=== PATIENT | female | born 1995 | race Caucasian/White ===

== ENCOUNTER 2016-07-08 17:24 | Inpatient (IN) | payer OTHER ==
[2016-07-08] MEDS ORDERED: BRETHINE SUB-Q PRN (19:21)
[2016-07-08] MEDS ORDERED: STADOL IV PRN (19:21)
[2016-07-08] MEDS ORDERED: SUBLIMAZE IV PRN (19:21)
[2016-07-08] MEDS ORDERED: BRETHINE IVP PRN (19:21)
[2016-07-08] MEDS ORDERED: ePHEDrine SULFATE IV PRN (19:21)
[2016-07-08] MEDS ORDERED: NARCAN 0.4 MG/1 ML IV PRN (19:21)
[2016-07-08] MEDS ORDERED: MINERAL OIL PO PRN (19:21)
[2016-07-08] MEDS ORDERED: ZOFRAN IV PRN (19:21)
[2016-07-08] MEDS ORDERED: XYLOCAINE 2% INFILTRATI ONE ×3 (19:21→22:48)
[2016-07-08] MEDS ORDERED: PITOCin/NS 20 UNIT/1000ML DRIP 20 UNIT/1,000 ML BAG IV SCH (20:00)
[2016-07-08] MEDS ORDERED: PITOCin/NS 30 UNIT/500ML 30 UNIT/500 ML BAG IV SCH (20:00)
[2016-07-08] MEDS ORDERED: POLYCILLIN/NS 2 GM/100 ML 2 GM/100 ML BAG IV ONE (20:00)
[2016-07-08] MEDS ORDERED: LACTATED RINGERS 1,000 ML IV SCH (20:00)
[2016-07-08 20:19] LABS: Hematocrit 42.4 % (30.3-42.9); Hemoglobin 14.5 gm/dl (10.1-14.3); Mean Corpuscular HGB Conc 34 % (30-34); Mean Corpuscular Hemoglobin 32 pg (28-32); Mean Corpuscular Volume 93 fl (79-97); Platelet Count 128 K/mm3 (140-440); Red Blood Count 4.58 M/mm3 (3.65-5.03); Red Cell Distribution Width 13.4 % (13.2-15.2); White Blood Count 11.1 K/mm3 (4.5-11.0)
[2016-07-08] MEDS ORDERED: POLYCILLIN/NS 1 GM/50 ML 1 GM/50 ML BAG IV SCH (23:23)
--- NOTE | 2016-07-08 23:27 | History and Physical Report ---
History of Present Illness Date of examination: 07/08/16 Date of admission: 07/08/16 17:24 Chief complaint: sent for induction History of present illness: Pt is a 21 year old female primigravida RUMA 07/04/16 at 40w4d presents for induction of labor secondary to oligohydramnios. She reports good movement and denies vaginal bleeding and leakage of fluid. She has had care at [facility] since 8 wks that has been uncomplicated other than GBS positive status. Past History Past Medical History: no pertinent history Past Surgical History: no surgical history Family/Genetic History: none Social history: no significant social history - Obstetrical History Expected Date of Delivery: 07/04/16 Actual Gestation: 40 Week(s) 4 Day(s) : 1 Medications and Allergies Allergies Allergy/AdvReac Type Severity Reaction Status Date / Time No Known Allergies Allergy Unverified 07/08/16 18:38 Home Medications Medication Instructions Recorded Confirmed Last Taken Type No Known Home Medications [No 07/08/16 07/08/16 Unknown History Reported Home Medications] Active Meds: Active Medications Butorphanol Tartrate (Stadol) 2 mg IV Q2H PRN PRN Reason: Pain , Severe (7-10) Last Admin: 07/08/16 23:14 Dose: 2 mg Fentanyl (Sublimaze) 100 mcg IV Q2H PRN PRN Reason: Labor Pain Last Admin: 07/08/16 21:56 Dose: 100 mcg Ampicillin Sodium (Polycillin/Ns 1 Gm/50 Ml) 1 gm in 50 mls @ 100 mls/hr IV Q4H CONCHIS PRN Reason: Protocol Lactated Ringer's (Lactated Ringers) 1,000 mls @ 125 mls/hr IV DIRECT CONCHIS Last Admin: 07/08/16 20:16 Dose: 125 mls/hr Oxytocin/Sodium Chloride (Pitocin/Ns 20 Unit/1000ml Drip) 20 unit in 1,000 mls @ 125 mls/hr IV DIRECT CONCHIS Last Admin: 07/08/16 23:14 Dose: 125 mls/hr Oxytocin/Sodium Chloride (Pitocin/Ns 30 Unit/500ml) 30 unit in 500 mls @ 0 mls/ hr IV TITR CONCHIS PRN Reason: Protocol Last Admin: 07/08/16 20:22 Dose: 2 mls/hr Mineral Oil (Mineral Oil) 30 ml PO QHS PRN PRN Reason: Constipation Naloxone HCl (Narcan 0.4 Mg/1 Ml) 0.1 mg IV Q2MIN PRN PRN Reason: Res Rate </= 8 or 02 SAT < 92% Ondansetron HCl (Zofran) 4 mg IV Q8H PRN PRN Reason: Nausea And Vomiting Review of Systems All systems: negative - Vital Signs Vital signs: Vital Signs Pulse Ox 99 07/08/16 17:52 Temp Pulse Resp BP Pulse Ox 98.5 F 64 18 116/76 96 07/08/16 19:52 07/08/16 19:54 07/08/16 19:52 07/08/16 19:54 07/08/16 18:41 - Physical Exam Breasts: Positive: deferred Abdomen: Positive: soft (gravid ) Genitourinary (Female): Positive: normal external genitalia Uterus: Positive: enlarged (gravid ) Extremities: Positive: normal - Obstetrical FHR: category 2 Uterine Contraction Monitor Mode: External Cervical Dilatation: 10 Cervical Effacement Percentage: 100 station: +2 Uterine Contraction Pattern: Regular Uterine Tone Measurement Phase: Resting Uterine Contraction Intensity: Strong/Firm Results Result Diagrams: 07/08/16 20:00 Abnormal lab results 07/08/16 Range/Units 20:00 WBC 11.1 H (4.5-11.0) K/mm3 Hgb 14.5 H (10.1-14.3) gm/dl Plt Count 128 L (140-440) K/mm3 All other labs normal. Assessment and Plan A: IUP at 40w4d Oligohydramnios Second stage labor GBS positive Thrombocytopenia Suspected Hemoconcentration P: Admit to labor and delivery. Routine intrapartum care. Anticipate vaginal delivery.
--- NOTE | 2016-07-08 23:34 | Procedure Note ---
OB Delivery Note - Delivery Date of Delivery: 07/08/16 Surgeon: BLAISE LORD Estimated blood loss: other (400 mL) - Vaginal Delivery presentation: vertex Delivery position: OA Intrapartum events: decreased FHT variability, mult.variable deceleratio Delivery induction: AROM Delivery monitor: external FHT, external uterine Route of delivery: Delivery placenta: spontaneous Delivery cord: 3 umbilical vessels Episiotomy: none Delivery laceration: 2nd degree, other (left periurethral ) Delivery repair: vicryl Anesthesia: local, intravenous Delivery comments: Pt rapidly progressed from 4 cm to complete/complete/+2 and pushed to deliver a viable female via over intact perineum under IV anesthesia. Head delivered in RAJWINDER position, quickly followed by shoulders and body. placed on maternal abdomen and bulb suctioned. NICU called because slow to cry. Cord blood collected. Placenta delivered spontaneously (3VC, intact). Vagina and perineum explored. Left periurethral noted to be hemostatic. Deep second degree laceration repaired with 2-0 Vicryl in a standard fashion. EBL 400 mL. Pt will need a 2 wk incision check appointment . - A at 1 minute: 8 at 5 minutes: 9 Infant Gender: Female (3428g (7lb 9 oz))
[2016-07-09] MEDS ORDERED: TYLENOL PO PRN (02:26)
[2016-07-09] MEDS ORDERED: PITOCin/NS 20 UNIT/1000ML DRIP 20 UNIT/1,000 ML BAG IV SCH (02:26)
[2016-07-09] MEDS ORDERED: LANSINOH TP PRN (02:26)
[2016-07-09] MEDS ORDERED: ZOFRAN IV PRN (02:26)
[2016-07-09] MEDS ORDERED: SODIUM CHLORIDE FLUSH SYRINGE 10 ML IV NR (02:26)
[2016-07-09] MEDS ORDERED: PHENERGAN PO PRN (02:26)
[2016-07-09] MEDS ORDERED: DULCOLAX PR PRN (02:26)
[2016-07-09] MEDS ORDERED: MILK OF MAGNESIA PO PRN (02:26)
[2016-07-09] MEDS ORDERED: BENADRYL PO PRN (02:26)
[2016-07-09] MEDS ORDERED: PHENERGAN PR PRN (02:26)
[2016-07-09] MEDS ORDERED: DERMOPLAST TP PRN (02:26)
[2016-07-09] MEDS ORDERED: PERCOCET 5/325 PO PRN (02:26)
--- NOTE | 2016-07-09 09:42 | Progress Note ---
Assessment and Plan O: VSS AF PP H/H: pending A: Stable 8hr PP Second Degree Laceration P: Continue routine orders Subjective - Subjective Date of service: 07/09/16 Patient reports: appetite normal, voiding normally, pain well controlled, flatus , ambulating normally [place]: doing well Objective - Vital Signs Latest vital signs: Vital Signs Temp Pulse Pulse Resp BP BP Pulse Ox 07/09/16 06:05 98.5 F 58 L 18 98/54 07/09/16 02:30 98.6 F 66 18 99/57 07/09/16 00:00 98.6 F 92 H 18 107/59 99 07/08/16 23:31 92 H 107/59 07/08/16 23:30 98.6 F 97 H 18 107/59 98 07/08/16 23:24 97 H 130/57 07/08/16 23:00 98.5 F 97 H 18 130/57 99 07/08/16 19:54 64 116/76 07/08/16 19:52 98.5 F 18 116/76 07/08/16 18:41 72 96 07/08/16 18:36 73 95 07/08/16 18:34 74 94 07/08/16 18:31 72 95 07/08/16 18:26 79 97 07/08/16 18:21 75 95 07/08/16 18:18 71 94 07/08/16 18:16 71 96 07/08/16 18:14 98.8 F 85 16 110/64 100 07/08/16 18:08 77 97 07/08/16 18:07 71 83 L 07/08/16 18:02 71 96 07/08/16 17:57 70 96 07/08/16 17:53 69 110/64 07/08/16 17:52 99 Intake and Output 07/08/16 07/09/16 07/09/16 22:59 06:59 14:59 Intake Total 240 Balance 240 Intake: Intake, Free Water 240 Other: # Voids Void 1 Weight 80.286 kg - Exam Breasts: Present: deferred Abdomen: Present: normal appearance, soft. Absent: distention, tenderness Vulva: both: normal Uterus: Present: normal, firm, fundal height at umbilicus. Absent: bogginess, tenderness Extremities: Present: normal - Labs Labs: Abnormal lab results 07/08/16 Range/Units 20:00 WBC 11.1 H (4.5-11.0) K/mm3 Hgb 14.5 H (10.1-14.3) gm/dl Plt Count 128 L (140-440) K/mm3
--- NOTE | 2016-07-09 09:43 | Discharge Summary ---
Providers - Providers Date of Admission: 07/08/16 17:24 Date of discharge: 07/10/16 Attending physician: BLAISE LORD 07/09/16 02:26 Consult to Assistant Professor Of Life [employer] [CONS] Routine Reason For Exam: assistance with , SNS Primary care physician: BLAISE LORD Hospitalization Reason for admission: induction of labor (oligo), IUP at term, other Delivery: Laceration: 2nd degree Other procedures: none complications: none Discharge diagnosis: IUP at term delivered baby: female Condition at discharge: Good Disposition: DISCHARGED TO HOME OR SELFCARE Plan - Discharge Medications Prescriptions: Ibuprofen [Motrin] 800 mg PO Q8HR PRN #30 tablet PRN Reason: Pain oxyCODONE /ACETAMINOPHEN [Percocet 5/325] 1 tab PO Q6HR PRN #30 tablet PRN Reason: Pain - Provider Discharge Summary Activity: routine, no sex for 6 weeks, no heavy lifting 4 weeks, no strenuous exercise Diet: routine Instructions: routine Additional instructions: [] Smoking cessation referral if applicable(refer to patient education folder for contact #) [] Refer to [facility]'s [facility] Booklet Call your doctor immediately for: * Fever > 100.5 * Heavy vaginal bleeding ( >1 pad per hour) * Severe persistent headache * Shortness of breath * Reddened, hot, painful area to leg or breast * Drainage or odor from incision. * Keep incision clean and dry at all times and follow doctor's instructions regarding bathing/showering - Follow up plan Follow up: BLAISE LORD MD [Primary Care Provider] - 14 Days (RTO 2 weeks laceration check)
[2016-07-09] MEDS: PRENATAL VITAMIN PO SCH (11:10)
[2016-07-09] MEDS: FEOSOL PO SCH ×2 (11:10→23:30)
[2016-07-09] MEDS: COLACE PO SCH ×2 (11:10→23:30)
[2016-07-09] MEDS: TUCKS PAD TP PRN (11:10)
[2016-07-09 12:15] LABS: Hemoglobin 12.3 gm/dl (10.1-14.3); Mean Corpuscular HGB Conc 34 % (30-34); Mean Corpuscular Hemoglobin 32 pg (28-32); Mean Corpuscular Volume 95 fl (79-97); Platelet Count 114 K/mm3 (140-440); Red Cell Distribution Width 13.4 % (13.2-15.2); White Blood Count 10.2 K/mm3 (4.5-11.0)
[2016-07-09] MEDS: MOTRIN PO SCH ×2 (14:57→18:13)
[2016-07-10] MEDS: MOTRIN PO SCH ×3 (00:14→12:45)
[2016-07-10] MEDS ORDERED: BOOSTRIX IM ONE (06:00)
[2016-07-10] MEDS ORDERED: M-M-R II VACCINE SUB-Q ONE (06:00)
[2016-07-10] MEDS: PRENATAL VITAMIN PO SCH (12:45)
[2016-07-10] MEDS: COLACE PO SCH (12:45)
[2016-07-10] MEDS: FEOSOL PO SCH ×2 (12:45→22:20)
[2016-07-10 18:54] VITALS: BP 110/60
[2016-07-10] MEDS: TUCKS PAD TP PRN (22:19)
== END 2016-07-10 23:00 | disposition home or self-care (01) | DRG 775 ==
LOC: LD 17:24 → OB 07-09 01:36
PROVIDERS: ADMIT Obstetrics & Gynecology; ATTEND Obstetrics & Gynecology
PROC: 10E0XZZ Delivery of Products of Conception, External Approach (ICD-10-PCS; principal; 2016-07-08)
PROC: 0KQM0ZZ Repair Perineum Muscle, Open Approach (ICD-10-PCS; 2016-07-08)
PROC: 10907ZC Drainage of Amniotic Fluid, Therapeutic from Products of Conception, Via Natural or Artificial Opening (ICD-10-PCS; 2016-07-08)
DX: O41.03X0 Oligohydramnios, third trimester, not applicable or unspecified (principal); O99.12 Other diseases of the blood and blood-forming organs and certain disorders involving the immune mechanism complicating childbirth; O70.1 Second degree perineal laceration during delivery; Z3A.40 40 weeks gestation of pregnancy; Z37.0 Single live birth; Z23 Encounter for immunization; O99.820 Streptococcus B carrier state complicating pregnancy; O76 Abnormality in fetal heart rate and rhythm complicating labor and delivery; D69.6 Thrombocytopenia, unspecified
CPT/HCPCS: 36415; 85027; 86850; 86900; 86901; 88307; 90471; 90715; 99211; G0463; J0290; J0595; J2590; J3010; J7120

== ENCOUNTER 2021-10-15 17:10 | Emergency (ER) | payer SELFPAY ==
[2021-10-15] MEDS ORDERED: SODIUM CHLORIDE 0.9% 1000 ML 1,000 ML IV ONE (22:11)
[2021-10-15 22:14] VITALS: BP 114/67
[2021-10-15 22:47] LABS: Basophils % (Auto) 0.3 % (0.0-1.8); Eosinophils # (Auto) 0.3 K/mm3 (0.0-0.4); Eosinophils % (Auto) 4.3 % (0.0-4.3); Hemoglobin 13.7 gm/dl (10.1-14.3); Lymphocytes # (Auto) 2.3 K/mm3 (1.2-5.4); Lymphocytes % (Auto) 37.3 % (13.4-35.0); Mean Corpuscular HGB Conc 34 % (30-34); Mean Corpuscular Volume 92 fl (79-97); Monocytes # (Auto) 0.4 K/mm3 (0.0-0.8); Monocytes % (Auto) 6.7 % (0.0-7.3); Platelet Count 172 K/mm3 (140-440); Red Blood Count 4.33 M/mm3 (3.65-5.03); Red Cell Distribution Width 13.5 % (13.2-15.2)
[2021-10-15 23:00] LABS: Blood Urea Nitrogen 7 mg/dL (7-17); Calcium 8.6 mg/dL (8.4-10.2); Hemolysis Index 7
[2021-10-15 23:03] LABS: INR 0.93 (0.87-1.13)
[2021-10-15 23:15] LABS: BUN/Creatinine Ratio 14
--- NOTE | 2021-10-15 23:22 | Emergency Department Report ---
ED HPI - General Chief complaint: Vaginal Bleeding Stated complaint: DOCTOR'S REFERRAL Time Seen by Provider: 10/15/21 21:59 Source: patient Mode of arrival: Ambulatory Limitations: No Limitations - History of Present Illness Initial comments: with right ectopic , sent from dr huertas office for methotrexate injection, first mock, no pain some vaginal bleeding vss Complaint: vaginal bleeding -: hour(s) Location: flank Radiation: R flank Severity scale (0 -10): 0 Associated symptoms: vaginal bleeding - Related Data : 3 Para: 2 Previous Rx's Medication Instructions Recorded Last Taken Type oxyCODONE /ACETAMINOPHEN [Percocet 1 tab PO Q6HR PRN #30 tablet 07/08/16 Unknown Rx 5/325] Ibuprofen [Motrin] 800 mg PO Q8HR PRN #30 tablet 07/09/16 Unknown Rx HYDROcodone/APAP 5-325 [Cecilia 1 each PO Q6HR PRN #15 tablet 02/26/20 Unknown Rx 5/325] Ibuprofen [Motrin] 800 mg PO Q8HR PRN #30 tablet 02/26/20 Unknown Rx Allergies Allergy/AdvReac Type Severity Reaction Status Date / Time No Known Allergies Allergy Unverified 07/08/16 18:38 ED Review of Systems ROS: Stated complaint: DOCTOR'S REFERRAL Other details as noted in HPI Constitutional: denies: chills, fever Eyes: denies: eye pain, eye discharge, vision change ENT: denies: ear pain, throat pain Respiratory: denies: cough, shortness of breath, wheezing Cardiovascular: denies: chest pain, palpitations Endocrine: no symptoms reported Gastrointestinal: denies: abdominal pain, nausea, diarrhea Genitourinary: denies: urgency, dysuria, discharge Musculoskeletal: denies: back pain, joint swelling, arthralgia Skin: denies: rash, lesions Neurological: denies: headache, weakness, paresthesias Psychiatric: denies: anxiety, depression Hematological/Lymphatic: denies: easy bleeding, easy bruising ED Past Medical Hx - Past Medical History Hx Hypertension: No Hx Congestive Heart Failure: No Hx Diabetes: No Hx Deep Vein Thrombosis: No Hx Renal Disease: No Hx Sickle Cell Disease: No Hx Seizures: No Hx Asthma: No Hx COPD: No Hx HIV: No - Social History Smoking Status: Never Smoker - Medications Home Medications: Home Medications Medication Instructions Recorded Confirmed Last Taken Type oxyCODONE /ACETAMINOPHEN [Percocet 1 tab PO Q6HR PRN #30 tablet 07/08/16 02/26/20 Unknown Rx 5/325] Ibuprofen [Motrin] 800 mg PO Q8HR PRN #30 tablet 07/09/16 02/26/20 Unknown Rx HYDROcodone/APAP 5-325 [Cecilia 1 each PO Q6HR PRN #15 tablet 02/26/20 Unknown Rx 5/325] Ibuprofen [Motrin] 800 mg PO Q8HR PRN #30 tablet 02/26/20 Unknown Rx ED Physical Exam - General Limitations: No Limitations General appearance: alert, in no apparent distress - Head Head exam: Present: atraumatic, normocephalic - Eye Eye exam: Present: normal appearance - ENT ENT exam: Present: mucous membranes moist - Neck Neck exam: Present: normal inspection - Respiratory Respiratory exam: Present: normal lung sounds bilaterally. Absent: respiratory distress - Cardiovascular Cardiovascular Exam: Present: regular rate, normal rhythm. Absent: systolic murmur, diastolic murmur, rubs, gallop - GI/Abdominal GI/Abdominal exam: Present: soft, normal bowel sounds - Extremities Exam Extremities exam: Present: normal inspection - Back Exam Back exam: Present: normal inspection - Neurological Exam Neurological exam: Present: alert, oriented X3 - Psychiatric Psychiatric exam: Present: normal affect, normal mood - Skin Skin exam: Present: warm, dry, intact, normal color. Absent: rash ED Course Vital Signs 10/15/21 10/15/21 10/15/21 18:34 22:11 22:14 Temperature 98.1 F 98.5 F Pulse Rate 78 65 Respiratory 16 12 Rate Blood Pressure 106/72 114/67 [Left] O2 Sat by Pulse 100 100 100 Oximetry ED Medical Decision Making - Lab Data Result diagrams: 10/15/21 22:28 10/15/21 22:28 - Medical Decision Making vss h.h stable , spoke with dr Huertas, will give methotrexate and she will follow up with her OP, precautions given Critical care attestation.: If time is entered above; I have spent that time in minutes in the direct care of this critically ill patient, excluding procedure time. ED Disposition Clinical Impression: Ectopic Disposition: HOME / SELF CARE / HOMELESS Is pt being admited?: No Does the pt Need Aspirin: No Condition: Stable Referrals: PRIMARY CARE, [Primary Care Provider] - 3-5 Days
== END 2021-10-15 23:40 | disposition home or self-care (01) ==
LOC: ED 17:10
DX: O00.91 Unspecified ectopic pregnancy with intrauterine pregnancy (principal); Z79.899 Other long term (current) drug therapy; Z3A.01 Less than 8 weeks gestation of pregnancy
CPT/HCPCS: 36415; 80048; 84702; 85025; 85610; 96360; 96372; 99283; J7030; J9260